=== PATIENT | male | born 1970 | race Caucasian/White ===

== ENCOUNTER 2022-11-16 09:14 | Emergency (ER) | payer OTHER, SELFPAY ==
[2022-11-16 09:23] VITALS: BP 115/81; PULSE 107; RESP 20; TEMP 36.2; O2SAT 98
--- NOTE | 2022-11-16 09:43 | ED.NAVMDI ---
HPI - Nausea/Vomiting/Diarrhea General Chief complaint: Nausea/Vomiting/Diarrhea Stated complaint: abdo pain /diarrhea /fever Time Seen by Provider: 11/16/22 09:30 Source: patient and RN notes reviewed History of Present Illness HPI Narrative: Patient is a 52-year-old male who presents to urgent care with complaints of resolved abdominal pain, fever and loose stools. Patient states that he drink water from a garden hose on Wednesday after he had been out in the heat for several hours. Patient states that the symptoms started shortly after drinking the water from the hose. Patient states that symptoms have nearly resolved at this time however he has called off work today. Patient denies any nausea. States he has had a fever since yesterday. Patient is not taking anything [id number] for the fever however he has taken Imodium and Pepto-Bismol. Patient has been able to eat chicken noodle soup and has increased his fluid intake. No other acute complaints. No acute distress noted. Patient aware of the plan of care. Some parts of this dictation were generated by voice recognition software and may contain typographical and/or grammatical inaccuracies. Related Data Home Medications Medication Instructions Recorded Confirmed No Home Medications 11/16/22 11/16/22 Allergies Allergy/AdvReac Type Severity Reaction Status Date / Time Penicillins Allergy Anaphylaxis Verified 11/16/22 09:28 Review of Systems Review of Systems: CONSTITUTIONAL: Denies fever, chills, or sweats. EYES: Denies visual changes, redness, or discharge. ENT: Denies rhinorrhea, congestion, sore throat, or otalgia. CARDIOVASCULAR: Denies chest pain, palpitations, or edema. RESPIRATORY: Denies cough or dyspnea. GASTROINTESTINAL: Denies abdominal pain, nausea or vomiting reports of some loose stools GENITOURINARY: Denies dysuria or hematuria. SKIN: Denies rash or itching. MUSCULOSKELETAL: Denies back pain, joint pain, or myalgia. NEUROLOGIC: Denies headache, numbness, or weakness. All other systems reviewed are negative, except as documented in HPI. PMFSH Comments At the time of my signature, I reviewed and agree with the nursing past medical, surgical, social, and family history. There is no relevant family history pertinent to the patient complaint. Exam Narrative: GENERAL: This is a well-nourished, well-developed patient, in no apparent distress. HEAD: normocephalic, atraumatic. EYES: PERRL. Sclera clear/white. Vision is grossly intact. EARS: External ears normal NOSE: External nose normal with no obvious nasal discharge, nares without redness, no rhinorrhea. THROAT: Mucous membranes moist NECK: Neck supple CARDIOVASCULAR: Regular rate and rhythm without murmurs, gallops, or rubs. RESPIRATORY: Clear to auscultation. Breath sounds equal bilaterally. No wheezes, rales, or rhonchi. GASTROINTESTINAL: Abdomen soft, non-tender, nondistended. Bowel sounds are active. No guarding. SKIN: warm, intact with no suspicious lesions or rash, good texture and turgor. NEURO: awake, alert, and oriented to person, place and time. There were no obvious focal neurologic abnormalities. EXTREMITIES: No clubbing, cyanosis, or edema. Course Course Level of Care: Express Care Visit Vital Signs Vital signs: Vital Signs Temperature 97.2 F L 11/16/22 09:23 Pulse Rate 107 H 11/16/22 09:23 Respiratory Rate 20 11/16/22 09:23 Blood Pressure 115/81 11/16/22 09:23 Pulse Oximetry 98 11/16/22 09:23 Oxygen Delivery Room Air 11/16/22 09:23 Temperature 97.2 F L 11/16/22 09:23 Pulse Rate 107 H 11/16/22 09:23 Respiratory Rate 20 11/16/22 09:23 Blood Pressure 115/81 11/16/22 09:23 Pulse Oximetry 98 11/16/22 09:23 Oxygen Delivery Room Air 11/16/22 09:23 Reviewed MDM - Nausea/Vomiting/Diarrhea MDM Narrative Medical decision making narrative: Explained to the patient that we have limited resources at urgent care however due t
== END 2022-11-16 10:11 | disposition home or self-care (01) ==
PROVIDERS: Emergency Provider Nurse Practitioner Family
DX: K52.9 Noninfective gastroenteritis and colitis, unspecified (principal)
CPT/HCPCS: 99211; G0463